=== PATIENT | male | born 1995 | race Caucasian/White ===

== ENCOUNTER 2020-11-20 17:21 | Emergency (ER) | payer MEDICAID ==
[~2020-11-20] VITALS: Ht 165.1 cm; Wt 90.7 kg
[2020-11-20 17:53] VITALS: BP 141/86
--- NOTE | 2020-11-20 17:58 | NUR ---
PT BACK TO LOBBY. NOTIFIED PROVIDER RE PT STATUS.
--- NOTE | 2020-11-20 20:08 | NUR ---
SEEN AND EXAMINED BY JANELL WITH ORDERS, CARRIED OUT
[2020-11-20] MEDS ORDERED: KETOROLAC 30 MG/ML VIAL IM ONE (20:10)
[2020-11-20 21:37] LABS: BASOPHILS % (AUTO) 0.4 % (0.0-2.0); EOSINOPHILS # (AUTO) 0.1 K/uL (0-0.4); EOSINOPHILS % (AUTO) 0.8 % (0.0-4.0); HEMATOCRIT 47.3 % (36-52); HEMOGLOBIN 16.2 g/dL (12.0-18.0); LYMPHOCYTES % (AUTO) 21.8 % (20.5-51.1); MEAN CORPUSCULAR HEMOGLOBIN 30 pg (27-31); MEAN CORPUSCULAR HGB CONC 34 g/dL (33-37); MEAN CORPUSCULAR VOLUME 88.7 fL (80-94); MONOCYTES # (AUTO) 0.6 K/uL (0.8-1.0); NEUTROPHILS # (AUTO) 6.4 K/uL (1.8-7.7); PLATELET COUNT (AUTO) 319 K/uL (140-450); RED BLOOD CELL COUNT(AUTO) 5.33 MIL/uL (4.20-6.10); RED CELL DISTRIBUTION WIDTH 13.4 % (11.6-13.7); WHITE BLOOD COUNT (AUTO) 9.1 K/uL (4.8-10.8)
[2020-11-20 22:05] LABS: ALBUMIN 4.3 g/dL (3.4-5.0); ANION GAP 10.8 (8-16); CARBON DIOXIDE 29.9 mmol/L (21-32); POTASSIUM 3.7 mmol/L (3.5-5.1); TOTAL BILIRUBIN 0.9 mg/dL (0.0-1.0)
[2020-11-20] MEDS ORDERED: KETOROLAC 30 MG/ML VIAL ONE (22:12)
--- NOTE | 2020-11-20 22:20 | NUR ---
MEDICATED PER [facility] ORDER, TOLERATED WELL
[2020-11-20 23:30] VITALS: BP 129/78
--- NOTE | 2020-11-20 23:30 | NUR ---
Patient discharged with v/s stable. Written and verbal after care instructions given and explained. Patient alert, oriented and verbalized understanding of instructions. Ambulatory with steady gait. All questions addressed prior to discharge. ID band removed. Patient advised to follow up with PMD. Rx of IBUPROFEN, NORCO given. Patient educated on indication of medication including possible reaction and side effects. Opportunity to ask questions provided and answered.
== END 2020-11-20 23:30 | disposition home or self-care (01) ==
LOC: MED 17:21
DX: R51.9 Headache, unspecified (principal); R10.9 Unspecified abdominal pain; M79.604 Pain in right leg; M54.2 Cervicalgia; V89.2XXA Person injured in unspecified motor-vehicle accident, traffic, initial encounter; Y93.89 Activity, other specified; Y92.411 Interstate highway as the place of occurrence of the external cause; Y99.8 Other external cause status
CPT/HCPCS: 36415; 70450; 71250; 72125; 73590; 74176; 80053; 85025; 96372; 99285; J1885